=== PATIENT | male | born 1990 | race Caucasian/White ===

== ENCOUNTER 2021-06-05 22:08 | Emergency (ER) | payer OTHER ==
[~2021-06-05] VITALS: Ht 190.5 cm; Wt 59.1 kg
[2021-06-05 22:17] VITALS: TEMP 98
[2021-06-05 23:58] VITALS: BP 121/73; PULSE 59
== END 2021-06-05 23:58 | disposition home or self-care (01) ==
LOC: COL.ER 22:08
DX: S61.432A Puncture wound without foreign body of left hand, initial encounter (principal); F17.210 Nicotine dependence, cigarettes, uncomplicated; Z23 Encounter for immunization